=== PATIENT | male | born 1965 | race Caucasian/White ===

== ENCOUNTER 2023-03-08 11:10 | Emergency (ER) | payer OTHER ==
[~2023-03-08 11:10] MED LIST: Iopamidol 370 76% 100 ML VIAL ONE
[2023-03-08] MEDS ORDERED: Aspirin Chewable 81 MG TAB ONE (11:27)
[2023-03-08] MEDS ORDERED: Nitroglycerin 0.4 MG TAB (25 Tab Bottle) ONE (11:27)
[2023-03-08 11:38] LABS: #Basophils 0.1 thou/uL (0.0-0.2); #Eosinphils 0.3 thou/uL (0.0-0.7); #Lymphocytes 1.8 thou/uL (1.20-3.40); #Neutrophils 10.8 thou/uL (1.40-6.50); %Basophils 0.8 % (0.0-1.0); %Lymphocytes 13.1 % (21.0-51.0); %Monocytes 7.2 % (0.0-10.0); %Neutrophils 76.9 % (42.0-75.0); Hematocrit 53.1 % (42.0-52.0); Hemoglobin 17.3 g/dL (14.0-18.0); Mean Corpuscular HGB CONC 32.6 g/dL (32.0-36.0); Mean Corpuscular Hemoglobin 30.4 pg (27.0-31.0); Platelet Count 378 10x3/uL (130-400); Red Blood Cell (RBC) Count 5.71 mill/uL (4.70-6.10); White Blood Cell (WBC) Count 14.1 10x3/uL (4.8-10.8)
[2023-03-08 11:48] LABS: ALT (SGPT) 34 U/L (8-55); AST (SGOT) 30 U/L (5-34); Albumin 4.1 g/dL (3.5-5.0); Alkaline Phosphatase 134 U/L (40-110); Anion Gap 16 mmol/L (10-20); BUN (Urea Nitrogen) 12 mg/dL (8.4-25.7); Bilirubin, Total 0.7 mg/dL (0.2-1.2); Calc. Creatinine Clearance 0 mL/min (70-130); Calcium 9.3 mg/dL (7.8-10.44); Carbon Dioxide 21 mmol/L (22-29); Chloride 101 mmol/L (98-107); Estimated GFR 74; Glucose 102 mg/dL (70-105); Lipase 8 U/L (8-78); Potassium 3.9 mmol/L (3.5-5.1); Protein, Total 8.1 g/dL (6.0-8.3); Sodium 134 mmol/L (136-145); Troponin I Less than 0.010 ng/mL (< 0.028)
[2023-03-08] MEDS ORDERED: fentaNYL 50 mcg/mL 1 mL Vial ONE ×3 (11:59→15:04)
[2023-03-08 15:57] LABS: Troponin I Less than 0.010 ng/mL (< 0.028)
[2023-03-08 19:00] LABS: INR-International Normal Ratio 1.1; Prothrombin Time 14.8 sec (12.0-14.7)
[2023-03-08 19:01] LABS: PTT 27.1 sec (22.9-36.1)
== END 2023-03-08 15:47 | disposition short-term general hospital (02) ==
LOC: NAV ERS 11:10
DX: I70.0 Atherosclerosis of aorta (principal); J90 Pleural effusion, not elsewhere classified; F17.210 Nicotine dependence, cigarettes, uncomplicated; I48.91 Unspecified atrial fibrillation; Z79.01 Long term (current) use of anticoagulants; Z79.82 Long term (current) use of aspirin
CPT/HCPCS: 36415; 71045; 71275; 80053; 83690; 84484; 85025; 85610; 85730; 93005; 96361; 96374; 96376; J3010; Q9967